=== PATIENT | female | born 1955 | race Two or more races ===

== ENCOUNTER 2022-03-04 11:00 | Inpatient (IN) | payer OTHER ==
[~2022-03-04] VITALS: Ht 165.1 cm; Wt 79.8 kg
[2022-03-04] MEDS ORDERED: CRESTOR20 MG PO (14:00)
[2022-03-04] MEDS ORDERED: TRILIPIX135 MG PO (14:01)
[2022-03-04] MEDS ORDERED: LATANOPROST 0.7.5 ML OP (14:02)
[2022-03-04] MEDS ORDERED: ALLOPURINOL300 MG PO (14:02)
[2022-03-04] MEDS ORDERED: PROZAC20 MG PO (14:03)
[2022-03-04] MEDS ORDERED: STIOLTO RESPIMAT4 GM IH (14:03)
[2022-03-04] MEDS ORDERED: AMOX-CLAV 875-1 EACH PO (14:04)
[2022-03-07] MEDS ORDERED: MAXIMUM D3325 MCG (16:20)
[2022-03-07] MEDS ORDERED: LATANOPROST2.5 ML (16:20)
[2022-03-07] MEDS ORDERED: EMERGEN-C 1,01000 MG (16:23)
[2022-03-07] MEDS ORDERED: FOLIC ACID0.4 MG (16:24)
== END 2022-03-15 22:34 | disposition home or self-care (01) | DRG 330 ==
LOC: ADM 11:00 → SURG 03-07 09:49 → O/R 03-07 09:49 → CIR.AMB 03-07 11:00 → SURH 03-07 11:00 → EDSTATUS 03-07 11:00 → SURH 03-07 14:30 → SURG 03-07 19:40 → SURH 03-11 21:13
PROVIDERS: ADMIT Colon & Rectal Surgery; ATTEND Colon & Rectal Surgery
PROC: 0DTM4ZZ Resection of Descending Colon, Percutaneous Endoscopic Approach (ICD-10-PCS; 2022-03-07)
PROC: 07BB4ZZ Excision of Mesenteric Lymphatic, Percutaneous Endoscopic Approach (ICD-10-PCS; 2022-03-07)
PROC: 0DTL4ZZ Resection of Transverse Colon, Percutaneous Endoscopic Approach (ICD-10-PCS; principal; 2022-03-07 14:30)
PROC: 4A12X4Z Monitoring of Cardiac Electrical Activity, External Approach (ICD-10-PCS; 2022-03-11)
PROC: BW21ZZZ Computerized Tomography (CT Scan) of Abdomen and Pelvis (ICD-10-PCS; 2022-03-11)
PROC: B24BZZZ Ultrasonography of Heart with Aorta (ICD-10-PCS; 2022-03-12)
DX: C18.5 Malignant neoplasm of splenic flexure (principal); J90 Pleural effusion, not elsewhere classified; C78.5 Secondary malignant neoplasm of large intestine and rectum; R59.0 Localized enlarged lymph nodes; R09.02 Hypoxemia; J44.9 Chronic obstructive pulmonary disease, unspecified
CPT/HCPCS: 71275

== ENCOUNTER 2022-11-17 08:16 | Outpatient (CLI) | payer OTHER ==
[~2022-11-17 08:16] MED LIST: ALLOPURINOL300 MG PO; AMOX-CLAV 875-1 EACH PO; CRESTOR20 MG PO; EMERGEN-C 1,01000 MG; FOLIC ACID0.4 MG; LATANOPROST 0.7.5 ML OP; LATANOPROST2.5 ML; MAXIMUM D3325 MCG; PROZAC20 MG PO; STIOLTO RESPIMAT4 GM IH; TRILIPIX135 MG PO
== END 2022-11-17 08:17 | disposition home or self-care (01) ==
LOC: NUCLEAR 08:16
PROVIDERS: ATTEND Internal Medicine Hematology & Oncology
DX: C18.5 Malignant neoplasm of splenic flexure (principal); C78.7 Secondary malignant neoplasm of liver and intrahepatic bile duct; C78.01 Secondary malignant neoplasm of right lung; C78.02 Secondary malignant neoplasm of left lung; C77.2 Secondary and unspecified malignant neoplasm of intra-abdominal lymph nodes
CPT/HCPCS: 78816; A9552

== ENCOUNTER 2023-02-08 13:34 | Inpatient (IN) | payer OTHER ==
[~2023-02-08] VITALS: Ht 165.1 cm; Wt 60.3 kg
[2023-02-08] MEDS ORDERED: WARFARIN SODIUM1 MG (14:30)
--- NOTE | 2023-02-08 14:47 | NUR ---
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 EN EL AREA DE TRIAGE PTE EMPEZO A SANGRAR POR EL RECTO, SE PRESENTA HUMBERTO A DR. HOWARD. SE ACOMODA PTE.
--- NOTE | 2023-02-08 18:20 | NUR ---
SE EDUCA A PTE SOBRE TX MEDICO ESTA REFIERE ENTENDER. SE DERRICK MUESTRAS DE LABORATORIO UTILIZANDO MEDIDAS ASEPTICAS. SE COLOCA H/L APTE Y SE NOTIFICAN ESTUDIO DE RX PENDIENTE A REALIZAR.
[2023-02-13] MEDS ORDERED: ANORO ELLIPTA1 EACH (15:54)
[2023-02-13] MEDS ORDERED: PYRIDOXINE HCL100 MG (15:54)
[2023-02-13] MEDS ORDERED: FENOFIBRIC ACI135 MG (15:54)
[2023-02-13] MEDS ORDERED: CENTRUM SILVER1 EAC3 (15:54)
[2023-02-13] MEDS ORDERED: LOSARTAN POTASS50 MG (15:55)
[2023-02-13] MEDS ORDERED: ROSUVASTATIN CA40 MG (15:55)
[2023-02-17] MEDS ORDERED: TOPROL XL25 M1 PO (14:52)
[2023-02-17] MEDS ORDERED: PANTOPRAZOLE SO40 MG PO (14:53)
[2023-02-17] MEDS ORDERED: PAXIL20 MG PO (14:53)
[2023-02-17] MEDS ORDERED: ONDANSETRON4 MG/2 M1 IV (14:54)
== END 2023-02-18 09:30 | disposition other institution (70) | DRG 811 ==
LOC: ER 13:34 → ICU 19:47 → ICU-2 19:47 → ICU 02-09 06:25 → MEDI 02-16 20:16
PROVIDERS: ADMIT Internal Medicine; ATTEND Internal Medicine
PROC: 30233N1 Transfusion of Nonautologous Red Blood Cells into Peripheral Vein, Percutaneous Approach (ICD-10-PCS; 2023-02-09)
PROC: 0DJ08ZZ Inspection of Upper Intestinal Tract, Via Natural or Artificial Opening Endoscopic (ICD-10-PCS; principal; 2023-02-10)
PROC: 4A12X4Z Monitoring of Cardiac Electrical Activity, External Approach (ICD-10-PCS; 2023-02-17)
DX: D62 Acute posthemorrhagic anemia (principal); K83.1 Obstruction of bile duct; C78.7 Secondary malignant neoplasm of liver and intrahepatic bile duct; C78.5 Secondary malignant neoplasm of large intestine and rectum; K76.6 Portal hypertension; K62.5 Hemorrhage of anus and rectum; E78.5 Hyperlipidemia, unspecified; I10 Essential (primary) hypertension; K31.89 Other diseases of stomach and duodenum; K76.89 Other specified diseases of liver; D63.0 Anemia in neoplastic disease; Z85.3 Personal history of malignant neoplasm of breast; J44.9 Chronic obstructive pulmonary disease, unspecified